=== PATIENT | female | born 1960 | race American Indian/Alaskan Native ===

== ENCOUNTER 2019-08-17 08:59 | Observation (INO) | payer OTHER ==
[2019-08-17] MEDS ORDERED: APRESOLINE IV ONE (09:30)
[2019-08-17] MEDS ORDERED: CATAPRES PO ONE (09:30)
[2019-08-17] MEDS ORDERED: LABETALOL IV ONE ×3 (09:47→10:57)
[2019-08-17 10:06] LABS: Basophils # (Auto) 0.1 K/mm3 (0.0-0.1); Basophils % (Auto) 1.2 % (0.0-1.8); Eosinophils # (Auto) 0.1 K/mm3 (0.0-0.4); Eosinophils % (Auto) 1.2 % (0.0-4.3); Hematocrit 42.2 % (30.3-42.9); Hemoglobin 14.1 gm/dl (10.1-14.3); Lymphocytes % (Auto) 32.7 % (13.4-35.0); Mean Corpuscular HGB Conc 33 % (30-34); Mean Corpuscular Volume 93 fl (79-97); Monocytes # (Auto) 0.5 K/mm3 (0.0-0.8); Monocytes % (Auto) 7.5 % (0.0-7.3); Platelet Count 262 K/mm3 (140-440); Red Blood Count 4.52 M/mm3 (3.65-5.03); Red Cell Distribution Width 13.9 % (13.2-15.2)
--- NOTE | 2019-08-17 10:09 | Emergency Department Report ---
ED Neuro Deficit HPI - General Chief Complaint: Neuro Symptoms/Deficit Stated Complaint: LT SIDE PAIN/TINGLING Time Seen by Provider: 08/17/19 09:51 Source: patient Mode of arrival: Wheelchair Limitations: No Limitations - Related Data Allergies/Adverse Reactions: Allergies Allergy/AdvReac Type Severity Reaction Status Date / Time No Known Allergies Allergy Unverified 08/17/19 09:07 ED Review of Systems ROS: Stated complaint: LT SIDE PAIN/TINGLING Other details as noted in HPI ED Past Medical Hx - Past Medical History Previous Medical History?: No - Surgical History Past Surgical History?: No - Social History Smoking Status: Current Every Day Smoker Substance Use Type: None ED Neuro Physical Exam - General Limitations: No Limitations ED Course Vital Signs 08/17/19 09:07 Temperature 98.0 F Pulse Rate 105 H Respiratory 16 Rate Blood Pressure 235/143 O2 Sat by Pulse 96 Oximetry - Lab Data Result diagrams: 08/17/19 09:35 Lab Results 08/17/19 08/17/19 Range/Units 09:10 09:35 WBC 6.3 (4.5-11.0) K/mm3 RBC 4.52 (3.65-5.03) M/mm3 Hgb 14.1 (10.1-14.3) gm/dl Hct 42.2 (30.3-42.9) % MCV 93 (79-97) fl MCH 31 (28-32) pg MCHC 33 (30-34) % RDW 13.9 (13.2-15.2) % Plt Count 262 (140-440) K/mm3 Lymph % (Auto) 32.7 (13.4-35.0) % [place] % (Auto) 7.5 H (0.0-7.3) % Eos % (Auto) 1.2 (0.0-4.3) % Baso % (Auto) 1.2 (0.0-1.8) % Lymph # 2.0 (1.2-5.4) K/mm3 [place] # 0.5 (0.0-0.8) K/mm3 Eos # 0.1 (0.0-0.4) K/mm3 Baso # 0.1 (0.0-0.1) K/mm3 Seg Neutrophils % 57.4 (40.0-70.0) % Seg Neutrophils # 3.6 (1.8-7.7) K/mm3 POC Glucose 134 H (70-105) Critical care attestation.: If time is entered above; I have spent that time in minutes in the direct care of this critically ill patient, excluding procedure time. ED Disposition Condition: Stable
--- NOTE | 2019-08-17 10:12 | Cat Scan Report ---
CT HEAD WITHOUT CONTRAST INDICATION / CLINICAL INFORMATION: MAIN: STROKE PROTOCOL [phone]. Code stroke. TECHNIQUE: Axial imaging performed from the skull apex through the skull base without the use of cont rast. Sagittal and coronal reformatted images. All CT scans at this location are performed using CT dose reduction for ALARA by means of automated exposure control. COMPARISON: None available. FINDINGS: CEREBRAL PARENCHYMA: No significant abnormality. No acute territorial infarct. HEMORRHAGE: None. EXTRA-AXIAL SPACES: Normal in size and morphology for the patient's age. VENTRICULAR SYSTEM: Normal in size and morphology for the patient's age. MIDLINE SHIFT OR HERNIATION: None. CEREBELLUM / BRAINSTEM: No significant abnormality. CALVARIUM: No significant abnormality. ORBITS: Normal as visualized. PARANASAL SINUSES / MASTOID AIR CELLS: Normal as visualized. SOFT TISSUES of HEAD: No significant abnormality. ADDITIONAL FINDINGS: None. IMPRESSION: No acute intracranial abnormality. These findings were discussed with Dr. Perston in the emergency department at 1005 hours EST. Signer Name: Tyler Kingston Jr, MD Signed: 08/17/2019 10:08 AM Workstation Name: [id number]
[2019-08-17 10:22] LABS: INR 1.01 (0.87-1.13)
[2019-08-17 10:26] LABS: BUN/Creatinine Ratio 29; Blood Urea Nitrogen 20 mg/dL (7-17); Calcium 9.2 mg/dL (8.4-10.2); Hemolysis Index 20
--- NOTE | 2019-08-17 10:27 | Emergency Department Report ---
ED Neuro Deficit HPI - General Chief Complaint: Neuro Symptoms/Deficit Stated Complaint: LT SIDE PAIN/TINGLING Time Seen by Provider: 08/17/19 09:51 Source: patient, family Mode of arrival: Wheelchair Limitations: No Limitations - History of Present Illness Initial Comments: [facility] TeleStroke Metrics: LKW: 1900 last night Door Time: 0859 [facility] Contacted: 0946 [facility] at Bedside: 0952 NIHSS: 1004 Decision on Alteplase: Not to give as the patient's last known well time is greater than 4.5 hours prior to her presentation. Interventional Candidate: Not a candidate as her symptoms are not consistent with a large vessel proximal occlusion. Chief Complaint: Persistent headaches, left-sided pain, and left-sided numbness and weakness HPI: Asked to see this patient in emergent telemedicine consultation utilizing interactive audio and video technologies. Consultation was performed with assistance of ancillary / medical staff at bedside. Verbal consent to perform the examination with telemedicine was obtained. Patient agreed to proceed with the consultation for acute stroke protocol. 59-year-old right-handed -[place] female who comes to the emergency room for left-sided pain and headaches. Patient does not take any medications or aspirin at baseline. Patient does report a history of migraine headaches. ER staff notes that the patient smells like alcohol. Sometime about 3 to 4 days ago on , the patient was at work when she had acute left facial pain. She describes the pain as pressure and noted as if someone hit the left side of her face. She also over the last 1 week has been dealing with a migraine headache with mild photophobia but no nausea. Then last night around 7 PM, she developed left-sided pain and paresthesias. She describes bone pain and also as if someone was hitting the left side of her body. She reports that her pain overall is 9/10 currently. Patient states she has never had symptoms like this before. PMH: Migraine headache SOC: Positive for tobacco abuse and alcohol use. No illicit drug use. Patient lives with her fianc. FMH: Negative for stroke. ROS: 13 point review of systems were reviewed with the patient, and are all negative with the exception of the aforementioned in the history of present illness. VS: Blood pressure 196/115, respiration 14, oxygen saturation 100% Exam: Patient is in no apparent distress. Patient appears as stated age. No obvious acute respiratory or cardiac distress. Patient is well groomed and well-nourished. 1a- LOC: Keenly responsive - 0 1b- LOC questions: Answers both questions correctly - 0 1c- LOC commands- Performs both tasks correctly- 0 2- Gaze: Normal; no gaze paresis or gaze deviation - 0 3- Visual Morgan: normal, no Visual field deficit - 0 4- Facial movements: no facial palsy - 0 5- Upper limb motor left arm drift - 1 6- Lower limb motor left leg drift - 1 7- Limb Coordination: absent ataxia - 0 8- Sensory: left sensory loss - 1 9- Language - No aphasia - 0 10- Speech - No dysarthria -0 11- Neglect / Extinction - none found - 0 NIHSS score: 3 Diagnostic Data: CT head is negative. Blood glucose 134 Medical Data Reviewed: 1.Data?reviewed include clinical labs, radiology,?and medical tests; 2.Tests?results discussed w/performing or interpreting physician; 3.Obtaining/reviewing old medical records; 4.Obtaining?case history from another source; 5.Independent?review of image, tracing, or specimen. Medical Decision Making: - Extensive number of diagnosis or management options are considered below. - Extensive amount of complex data reviewed. - High risk of complication and/or morbidity or mortality are associated with differential diagnostic considerations below. - There may be?uncertain?outcome and increased probability of prolonged functional impairment or high probability of severe prolonged functional impairment associated with some of these differential diagnosis. Differential Diagnosis for Stroke: 1.?Cardioembolic?stroke 2. Small vessel disease/lacune 3. Thromboembolic, [id number] mechanism 4.?Hypercoagulable?state-related infarct 5. Transient ischemic attack 6. Thrombotic mechanism, large artery disease Assessment: 1. Possible complicated migraine 2. Tobacco abuse and alcohol abuse 3. Possible hypertension Recommendations: Patient can be admitted to the hospital for further work-up of her symptoms. Check MRI brain with and without contrast to rule out any acute intracranial process. Check MRA of the head and neck to evaluate her intracranial and extracranial blood vessels. Check echocardiogram to gauge her cardiac function. Maintain the patient on telemetry to look for paroxysmal atrial fibrillation. Check hemoglobin A1c, lipid panel, and urine drug screen. Consult PT, OT, and ST. Patient can be given a trial of IV migraine cocktail medications per ER team. Consult local neurology team to assist with evaluation and management. Continue supportive care. Thank you for allowing [facility] to participate in the care of your patient. Please call me, Dr. Fung, with any questions at [phone]. Case discussed with the ER staff and Dr. Preston. Critical Care notation: I was called to see this critical patient emergently. I personally evaluated this critical patient for acute stroke evaluation, and determining their eligibility for IV Alteplase and interventional therapies. I have spent approximately 15 minutes with the patient, including time at bedside, time discussing the case with other physicians, reviewing plan of care, and time independently reviewing the records and scans. - Related Data Allergies/Adverse Reactions: Allergies Allergy/AdvReac Type Severity Reaction Status Date / Time No Known Allergies Allergy Unverified 08/17/19 09:07 ED Review of Systems ROS: Stated complaint: LT SIDE PAIN/TINGLING Other details as noted in HPI ED Past Medical Hx - Past Medical History Previous Medical History?: No - Surgical History Past Surgical History?: No - Social History Smoking Status: Current Every Day Smoker Substance Use Type: None ED Neuro Physical Exam - General Limitations: No Limitations Suspected Stroke: No ED Course Vital Signs 08/17/19 08/17/19 09:07 09:47 Temperature 98.0 F Pulse Rate 105 H 104 H Respiratory 16 Rate Blood Pressure 235/143 235/143 O2 Sat by Pulse 96 Oximetry - Lab Data Result diagrams: 08/17/19 09:35 Lab Results 08/17/19 08/17/19 08/17/19 Range/Units 09:10 09:35 09:35 WBC 6.3 (4.5-11.0) K/mm3 RBC 4.52 (3.65-5.03) M/mm3 Hgb 14.1 (10.1-14.3) gm/dl Hct 42.2 (30.3-42.9) % MCV 93 (79-97) fl MCH 31 (28-32) pg MCHC 33 (30-34) % RDW 13.9 (13.2-15.2) % Plt Count 262 (140-440) K/mm3 Lymph % (Auto) 32.7 (13.4-35.0) % [place] % (Auto) 7.5 H (0.0-7.3) % Eos % (Auto) 1.2 (0.0-4.3) % Baso % (Auto) 1.2 (0.0-1.8) % Lymph # 2.0 (1.2-5.4) K/mm3 [place] # 0.5 (0.0-0.8) K/mm3 Eos # 0.1 (0.0-0.4) K/mm3 Baso # 0.1 (0.0-0.1) K/mm3 Seg Neutrophils % 57.4 (40.0-70.0) % Seg Neutrophils # 3.6 (1.8-7.7) K/mm3 Thrombin Time 18.2 (15.1-19.6) Sec. POC Glucose 134 H (70-105) Critical care attestation.: If time is entered above; I have spent that time in minutes in the direct care of this critically ill patient, excluding procedure time. ED Disposition Clinical Impression: Left-sided face pain Disposition: OP ADMIT IP TO THIS HOSP Is pt being admited?: Yes Does the pt Need Aspirin: No Condition: Stable
[2019-08-17 10:30] LABS: Alanine Aminotransferase 33 units/L (7-56); Albumin 4.5 g/dL (3.9-5)
[2019-08-17 10:31] LABS: Partial Thromboplastin Time 27.2 Sec. (24.2-36.6)
[2019-08-17 10:44] LABS: Bilirubin,Direct < 0.2 mg/dL (0-0.2)
--- NOTE | 2019-08-17 10:47 | XRay Report ---
CHEST 1 VIEW INDICATION: hypertension. COMPARISON: None FINDINGS: Support devices: None. Heart: Borderline to mild cardiomegaly. Lungs/Pleura: No acute air space or interstitial disease. Additional findings: None. IMPRESSION: Borderline to mild cardiomegaly. Lungs clear. Signer Name: Tyler Kingston Jr, MD Signed: 08/17/2019 10:42 AM Workstation Name: [id number]
[2019-08-17] MEDS ORDERED: ZOFRAN IV ONE (10:57)
[2019-08-17] MEDS ORDERED: MORPHINE IV ONE (10:57)
--- NOTE | 2019-08-17 11:30 | Emergency Department Report ---
ED Neuro Deficit HPI - General Chief Complaint: Neuro Symptoms/Deficit Stated Complaint: LT SIDE PAIN/TINGLING Time Seen by Provider: 08/17/19 09:51 Source: patient, family Mode of arrival: Wheelchair Limitations: No Limitations - History of Present Illness Initial Comments: This is a 59-year-old female who was preliminarily screened by the physician rohith hough who told me that the patient has had left sided weakness and numbness since between 7 and 8 last night. She also presented with a left-sided headache. She had been recently consuming alcohol. The exact onset of her symptoms were vacantly day. She was found to have an extreme elevation of her blood pressure. Therefore, the code stroke was called to expedite her care, established treatment paradigm's, rule out acute hemorrhage and obtain consultation from the tele-neurologist. Patient's history was a bit variable. On my encounter she was not complaining of headache. She stated that she had a difference in sensation involving her face arm and leg. She stated that she had difficulty walking but not specifically secondary to coordination. She stated that her vision was globally blurred. She stated that she has not seen a physician in years. She had not checked her blood pressure and a similar period of time. Her initial blood pressure was extraordinarily high. She was given 20 of labetalol and sent for an emergency CT. -: hour(s) Location: left face, left arm, left leg Presenting Symptoms: Present: Weak/Paralyzed One Side, Blurred/Loss of Vision History of same: No Place: home Severity: mild, moderate Quality: weak, numb Improves With: none Worsens With: none On Anticoagulants: No Context: gradual onset Associated Symptoms: denies other symptoms Treatments Prior to Arrival: none - Related Data Allergies/Adverse Reactions: Allergies Allergy/AdvReac Type Severity Reaction Status Date / Time No Known Allergies Allergy Unverified 08/17/19 09:07 ED Review of Systems ROS: Stated complaint: LT SIDE PAIN/TINGLING Other details as noted in HPI Constitutional: denies: chills, fever Eyes: denies: eye pain, eye discharge, vision change ENT: denies: ear pain, throat pain Respiratory: denies: cough, shortness of breath, wheezing Cardiovascular: denies: chest pain, palpitations Endocrine: no symptoms reported Gastrointestinal: denies: abdominal pain, nausea, diarrhea Genitourinary: denies: urgency, dysuria, discharge Musculoskeletal: denies: back pain, joint swelling, arthralgia Skin: denies: rash, lesions Neurological: headache, weakness, numbness. denies: paresthesias Psychiatric: denies: anxiety, depression Hematological/Lymphatic: denies: easy bleeding, easy bruising ED Past Medical Hx - Past Medical History Previous Medical History?: No - Surgical History Past Surgical History?: No - Social History Smoking Status: Current Every Day Smoker Substance Use Type: None ED Neuro Physical Exam - General Limitations: No Limitations General appearance: alert, in no apparent distress Suspected Stroke: Yes - Head Head exam: Present: atraumatic, normocephalic - Eye Eye exam: Present: normal appearance - ENT ENT exam: Present: mucous membranes moist - Neck Neck exam: Present: normal inspection - Respiratory Respiratory exam: Present: normal lung sounds bilaterally. Absent: respiratory distress - Cardiovascular Cardiovascular Exam: Present: regular rate, normal rhythm. Absent: systolic mu rmur, diastolic murmur, rubs, gallop - GI/Abdominal GI/Abdominal exam: Present: soft, normal bowel sounds. Absent: distended, tenderness, guarding, rebound, rigid - Extremities Exam Extremities exam: Present: normal inspection - Back Exam Back exam: Present: normal inspection - Neurological Exam Neurological exam: Present: alert, oriented X3, CN II-XII intact, motor sensory deficit - NIHSS Assessment Interval: Baseline 1a. Level of Consciousness: alert/keenly responsive 1b. LOC Questions: answers both correctly 1c. LOC Commands: performs tasks correctly 2. Best Gaze: normal 3. Visual: no visual loss 4. Facial Palsy: normal symmetrical movement 5b. Motor Arm Right: no drift 5a. Motor Arm Left: drift (very mild) 6a. Motor Leg Left: no drift 6b. Motor Leg Right: no drift (I did not find just on the standard second count) 7. Limb Ataxia: absent 8. Sensory: mild/moderate sensory loss 9. Best Language: no aphasia 10. Dysarthria: normal 11. Extinction/Inattention: no abnormality Total Score: 2 Stroke Severity: Minor Stroke - Psychiatric Psychiatric exam: Present: anxious, flat affect - Skin Skin exam: Present: warm, dry, intact, normal color. Absent: rash ED Course Vital Signs 08/17/19 08/17/19 08/17/19 09:07 09:25 09:28 Temperature 98.0 F Pulse Rate 105 H 100 H Respiratory 16 13 Rate Blood Pressure 235/143 O2 Sat by Pulse 96 100 Oximetry 08/17/19 08/17/19 08/17/19 09:30 09:40 09:47 Temperature Pulse Rate 108 H 98 H 104 H Respiratory 20 16 Rate Blood Pressure 219/147 219/147 235/143 O2 Sat by Pulse 99 100 Oximetry 08/17/19 08/17/19 08/17/19 09:50 10:03 10:10 Temperature Pulse Rate 89 Respiratory 16 Rate Blood Pressure 185/106 196/115 196/115 O2 Sat by Pulse 100 100 Oximetry 08/17/19 08/17/19 08/17/19 10:20 10:30 10:40 Temperature Pulse Rate 89 90 91 H Respiratory 17 13 12 Rate Blood Pressure 190/110 181/112 181/112 O2 Sat by Pulse 100 98 100 Oximetry 08/17/19 08/17/19 08/17/19 10:50 11:00 11:10 Temperature Pulse Rate 88 91 H 87 Respiratory 17 16 12 Rate Blood Pressure 185/106 177/102 177/102 O2 Sat by Pulse 99 98 100 Oximetry 08/17/19 08/17/19 08/17/19 11:20 11:30 11:40 Temperature Pulse Rate 90 92 H 93 H Respiratory 17 15 17 Rate Blood Pressure 179/97 182/99 182/99 O2 Sat by Pulse 100 99 100 Oximetry - Reevaluation(s) Reevaluation #1: Patient's blood pressure improved. We took care not to over treat but we did want to talk R get a systolic less than 185. I spoke to the telephone neurolog ist. He was leaning towards a diagnosis of complicated migraine. However, I do find it a bit atypical to have sustained sided headache and neurological symptoms and complicated migraine. In any case CVA cannot be excluded. This could be a hypertensive encephalopathy as well. The patient certainly had malignant hypertension. He was given analgesia and careful reduction of her blood pressure. She will be admitted to the hospitalist service for continued care and stroke workup. She is not a candidate for TPA as her symptoms began between 7 and 8 PM last night. There is no evidence of large vessel occlusion on CT or clinically at this time. 08/17/19 11:34 - Lab Data Result diagrams: 08/17/19 09:35 08/17/19 09:35 Lab Results 08/17/19 08/17/19 08/17/19 Range/Units 09:10 09:35 09:35 WBC 6.3 (4.5-11.0) K/mm3 RBC 4.52 (3.65-5.03) M/mm3 Hgb 14.1 (10.1-14.3) gm/dl Hct 42.2 (30.3-42.9) % MCV 93 (79-97) fl MCH 31 (28-32) pg MCHC 33 (30-34) % RDW 13.9 (13.2-15.2) % Plt Count 262 (140-440) K/mm3 Lymph % (Auto) 32.7 (13.4-35.0) % Thomas % (Auto) 7.5 H (0.0-7.3) % Eos % (Auto) 1.2 (0.0-4.3) % Baso % (Auto) 1.2 (0.0-1.8) % Lymph # 2.0 (1.2-5.4) K/mm3 Thomas # 0.5 (0.0-0.8) K/mm3 Eos # 0.1 (0.0-0.4) K/mm3 Baso # 0.1 (0.0-0.1) K/mm3 Seg Neutrophils % 57.4 (40.0-70.0) % Seg Neutrophils # 3.6 (1.8-7.7) K/mm3 PT 13.0 (12.2-14.9) Sec. INR 1.01 (0.87-1.13) APTT 27.2 (24.2-36.6) Sec. Thrombin Time (15.1-19.6) Sec. Sodium (137-145) mmol/L Potassium (3.6-5.0) mmol/L Chloride (98-107) mmol/L Carbon Dioxide (22-30) mmol/L Anion Gap mmol/L BUN (7-17) mg/dL Creatinine (0.7-1.2) mg/dL Estimated GFR ml/min BUN/Creatinine Ratio % Glucose (65-100) mg/dL POC Glucose 134 H (70-105) Calcium (8.4-10.2) mg/dL Magnesium (1.7-2.3) mg/dL Total Bilirubin (0.1-1.2) mg/dL Direct Bilirubin (0-0.2) mg/dL Indirect Bilirubin mg/dL AST (5-40) units/L ALT (7-56) units/L Alkaline Phosphatase (35-129) units/L Ammonia (25-60) umol/L Troponin T (0.00-0.029) ng/mL NT-Pro-B Natriuret Pep (0-900) pg/mL Total Protein (6.3-8.2) g/dL Albumin (3.9-5) g/dL Albumin/Globulin Ratio % 08/17/19 08/17/19 08/17/19 Range/Units 09:35 09:35 09:35 WBC (4.5-11.0) K/mm3 RBC (3.65-5.03) M/mm3 Hgb (10.1-14.3) gm/dl Hct (30.3-42.9) % MCV (79-97) fl MCH (28-32) pg MCHC (30-34) % RDW (13.2-15.2) % Plt Count (140-440) K/mm3 Lymph % (Auto) (13.4-35.0) % Thomas % (Auto) (0.0-7.3) % Eos % (Auto) (0.0-4.3) % Baso % (Auto) (0.0-1.8) % Lymph # (1.2-5.4) K/mm3 Thomas # (0.0-0.8) K/mm3 Eos # (0.0-0.4) K/mm3 Baso # (0.0-0.1) K/mm3 Seg Neutrophils % (40.0-70.0) % Seg Neutrophils # (1.8-7.7) K/mm3 PT (12.2-14.9) Sec. INR (0.87-1.13) APTT (24.2-36.6) Sec. Thrombin Time 18.2 (15.1-19.6) Sec. Sodium 141 (137-145) mmol/L Potassium 4.0 (3.6-5.0) mmol/L Chloride 99.6 (98-107) mmol/L Carbon Dioxide 22 (22-30) mmol/L Anion Gap 23 mmol/L BUN 20 H (7-17) mg/dL Creatinine 0.7 (0.7-1.2) mg/dL Estimated GFR > 60 ml/min BUN/Creatinine Ratio 29 % Glucose 127 H (65-100) mg/dL POC Glucose (70-105) Calcium 9.2 (8.4-10.2) mg/dL Magnesium 1.90 (1.7-2.3) mg/dL Total Bilirubin 0.20 (0.1-1.2) mg/dL Direct Bilirubin < 0.2 (0-0.2) mg/dL Indirect Bilirubin 0.0 mg/dL AST 34 (5-40) units/L ALT 33 (7-56) units/L Alkaline Phosphatase 81 (35-129) units/L Ammonia (25-60) umol/L Troponin T < 0.010 (0.00-0.029) ng/mL NT-Pro-B Natriuret Pep 102.5 (0-900) pg/mL Total Protein 8.7 H (6.3-8.2) g/dL Albumin 4.5 (3.9-5) g/dL Albumin/Globulin Ratio 1.1 % // Range/Units 10:09 WBC (4.5-11.0) K/mm3 RBC (3.65-5.03) M/mm3 Hgb (10.1-14.3) gm/dl Hct (30.3-42.9) % MCV (79-97) fl MCH (28-32) pg MCHC (30-34) % RDW (13.2-15.2) % Plt Count (140-440) K/mm3 Lymph % (Auto) (13.4-35.0) % Thomas % (Auto) (0.0-7.3) % Eos % (Auto) (0.0-4.3) % Baso % (Auto) (0.0-1.8) % Lymph # (1.2-5.4) K/mm3 Thomas # (0.0-0.8) K/mm3 Eos # (0.0-0.4) K/mm3 Baso # (0.0-0.1) K/mm3 Seg Neutrophils % (40.0-70.0) % Seg Neutrophils # (1.8-7.7) K/mm3 PT (12.2-14.9) Sec. INR (0.87-1.13) APTT (24.2-36.6) Sec. Thrombin Time (15.1-19.6) Sec. Sodium (137-145) mmol/L Potassium (3.6-5.0) mmol/L Chloride (98-107) mmol/L Carbon Dioxide (22-30) mmol/L Anion Gap mmol/L BUN (7-17) mg/dL Creatinine (0.7-1.2) mg/dL Estimated GFR ml/min BUN/Creatinine Ratio % Glucose (65-100) mg/dL POC Glucose (70-105) Calcium (8.4-10.2) mg/dL Magnesium (1.7-2.3) mg/dL Total Bilirubin (0.1-1.2) mg/dL Direct Bilirubin (0-0.2) mg/dL Indirect Bilirubin mg/dL AST (5-40) units/L ALT (7-56) units/L Alkaline Phosphatase (35-129) units/L Ammonia 54.0 (25-60) umol/L Troponin T (0.00-0.029) ng/mL NT-Pro-B Natriuret Pep (0-900) pg/mL Total Protein (6.3-8.2) g/dL Albumin (3.9-5) g/dL Albumin/Globulin Ratio % - EKG Data -: EKG Interpreted by Fl EKG shows normal: sinus rhythm, axis, intervals, QRS complexes, ST-T waves Rate: tachycardia Interpretation: other (sitter old anterior zone. Inferior son is jayant merida. Left axis deviation. No acute ischemic changes) - Radiology Data Radiology results: report reviewed (discussed with radiologist Dr. Kingston. No abnormalities were reported.) - Medical Decision Making TPA is not indicated. The patient is outside the window. She will be admitted for further care and management as above. - Thrombolytic Inclusion/Exclusion Thrombolytic Exclusion Criteria: Symptom Onset > 3 Hours Critical care attestation.: If time is entered above; I have spent that time in minutes in the direct care of this critically ill patient, excluding procedure time. ED Disposition Clinical Impression: Neurological deficit present, Malignant hypertension Disposition: OP ADMIT IP TO THIS HOSP Is pt being admited?: Yes Does the pt Need Aspirin: Yes Condition: Stable Instructions: Hypertension (ED) Referrals: PRIMARY CARE, [Primary Care Provider] - 3-5 Days Time of Disposition: 12:09
[2019-08-17] MEDS ORDERED: COZAAR PO ONE (11:59)
[2019-08-17] MEDS ORDERED: ASPIRIN PO ONE (12:00)
[2019-08-17] MEDS ORDERED: COZAAR ONE (12:52)
[2019-08-17] MEDS ORDERED: ASPIRIN ONE (12:52)
[2019-08-17] MEDS ORDERED: TYLENOL PO PRN (16:00)
[2019-08-17] MEDS ORDERED: DILAUDID IV PRN (16:00)
[2019-08-17] MEDS ORDERED: ZOFRAN IV PRN (16:00)
[2019-08-17] MEDS ORDERED: SODIUM CHLORIDE FLUSH SYRINGE 10 ML IV PRN ×2 (16:00→16:08)
[2019-08-17] MEDS ORDERED: PERCOCET 5/325 PO PRN (16:00)
--- NOTE | 2019-08-17 16:00 | History and Physical Report ---
History of Present Illness Date of examination: 08/17/19 Date of admission: 08/17/19 12:00 Chief complaint: Left-sided weakness since 8 PM last night History of present illness: 59-year-old -[place] female with no significant past medical history comes in for left-sided weakness and numbness since last night around 8 PM. Patient also had left-sided headache. Patient able to walk has slight weakness on the left upper extremity and left lower extremity which is improved. But not back to her baseline. This is the first episode. No seizures or syncope. No fever or chills. No recent travel. Past Medical History Previous Medical History?: No Surgical History Past Surgical History?: No Social History Smoking Status: Current Every Day Smoker Substance Use Type: None Family History Htn Review of Systems ROS: Stated complaint: LT SIDE PAIN/TINGLING Other details as noted in HPI Constitutional: denies: chills, fever Eyes: denies: eye pain, eye discharge, vision change ENT: denies: ear pain, throat pain Respiratory: denies: cough, shortness of breath, wheezing Cardiovascular: denies: chest pain, palpitations Endocrine: no symptoms reported Gastrointestinal: denies: abdominal pain, nausea, diarrhea Genitourinary: denies: urgency, dysuria, discharge Musculoskeletal: denies: back pain, joint swelling, arthralgia Skin: denies: rash, lesions Neurological: headache, weakness, numbness. denies: paresthesias Psychiatric: denies: anxiety, depression Hematological/Lymphatic: denies: easy bleeding, easy bruising Medications and Allergies Allergies Allergy/AdvReac Type Severity Reaction Status Date / Time No Known Allergies Allergy Unverified 08/17/19 09:07 Home Medications Medication Instructions Recorded Confirmed Last Taken Type No Known Home Medications [No 08/17/19 08/17/19 Unknown History Reported Home Medications] Exam - Constitutional Vitals: Temp Pulse Resp BP Pulse Ox 98 F 87 19 187/103 100 08/17/19 14:02 08/17/19 14:02 08/17/19 14:02 08/17/19 14:02 08/17/19 12:40 General appearance: Present: no acute distress, well-nourished - EENT Eyes: Present: PERRL ENT: hearing intact, clear oral mucosa - Neck Neck: Present: supple, normal ROM - Respiratory Respiratory effort: normal Respiratory: bilateral: CTA - Cardiovascular Heart rate: 78 Rhythm: regular Heart Sounds: Present: S1 & S2. Absent: rub, click - Extremities Extremities: no ischemia, pulses intact, pulses symmetrical, No edema Peripheral Pulses: within normal limits - Abdominal General gastrointestinal: Present: soft, non-tender, non-distended, normal bowel sounds Female genitourinary: Present: normal - Rectal Rectal Exam: deferred - Integumentary Integumentary: Present: clear, warm, dry - Musculoskeletal Musculoskeletal: left sided weakness - Psychiatric Psychiatric: appropriate mood/affect, intact judgment & insight - Neurologic Neurologic: focal deficits (left-sided weakness 4/5 power in left upper extremity and left lower extremity. Left facial weakness), other (left facial palsy -mild) - Allied Health Allied health notes reviewed: nursing, case management Results - Labs CBC & Chem 7: 08/17/19 09:35 08/17/19 09:35 Labs: Laboratory Last Values WBC 6.3 K/mm3 (4.5-11.0) 08/17/19 09:35 RBC 4.52 M/mm3 (3.65-5.03) 08/17/19 09:35 Hgb 14.1 gm/dl (10.1-14.3) 08/17/19 09:35 Hct 42.2 % (30.3-42.9) 08/17/19 09:35 MCV 93 fl (79-97) 08/17/19 09:35 MCH 31 pg (28-32) 08/17/19 09:35 MCHC 33 % (30-34) 08/17/19 09:35 RDW 13.9 % (13.2-15.2) 08/17/19 09:35 Plt Count 262 K/mm3 (140-440) 08/17/19 09:35 Lymph % (Auto) 32.7 % (13.4-35.0) 08/17/19 09:35 Daniels % (Auto) 7.5 % (0.0-7.3) H 08/17/19 09:35 Eos % (Auto) 1.2 % (0.0-4.3) 08/17/19 09:35 Baso % (Auto) 1.2 % (0.0-1.8) 08/17/19 09:35 Lymph # 2.0 K/mm3 (1.2-5.4) 08/17/19 09:35 Daniels # 0.5 K/mm3 (0.0-0.8) 08/17/19 09:35 Eos # 0.1 K/mm3 (0.0-0.4) 08/17/19 09:35 Baso # 0.1 K/mm3 (0.0-0.1) 08/17/19 09:35 Seg Neutrophils % 57.4 % (40.0-70.0) 08/17/19 09:35 Seg Neutrophils # 3.6 K/mm3 (1.8-7.7) 08/17/19 09:35 PT 13.0 Sec. (12.2-14.9) 08/17/19 09:35 INR 1.01 (0.87-1.13) 08/17/19 09:35 APTT 27.2 Sec. (24.2-36.6) 08/17/19 09:35 Thrombin Time 18.2 Sec. (15.1-19.6) 08/17/19 09:35 Sodium 141 mmol/L (137-145) 08/17/19 09:35 Potassium 4.0 mmol/L (3.6-5.0) 08/17/19 09:35 Chloride 99.6 mmol/L (98-107) 08/17/19 09:35 Carbon Dioxide 22 mmol/L (22-30) 08/17/19 09:35 Anion Gap 23 mmol/L 08/17/19 09:35 BUN 20 mg/dL (7-17) H 08/17/19 09:35 Creatinine 0.7 mg/dL (0.7-1.2) 08/17/19 09:35 Estimated GFR > 60 ml/min 08/17/19 09:35 BUN/Creatinine Ratio 29 % 08/17/19 09:35 Glucose 127 mg/dL (65-100) H 08/17/19 09:35 POC Glucose 134 (70-105) H 08/17/19 09:10 Calcium 9.2 mg/dL (8.4-10.2) 08/17/19 09:35 Magnesium 1.90 mg/dL (1.7-2.3) 08/17/19 09:35 Total Bilirubin 0.20 mg/dL (0.1-1.2) 08/17/19 09:35 Direct Bilirubin < 0.2 mg/dL (0-0.2) 08/17/19 09:35 Indirect Bilirubin 0.0 mg/dL 08/17/19 09:35 AST 34 units/L (5-40) 08/17/19 09:35 ALT 33 units/L (7-56) 08/17/19 09:35 Alkaline Phosphatase 81 units/L (35-129) 08/17/19 09:35 Ammonia 54.0 umol/L (25-60) 08/17/19 10:09 Troponin T < 0.010 ng/mL (0.00-0.029) 08/17/19 09:35 NT-Pro-B Natriuret Pep 102.5 pg/mL (0-900) 08/17/19 09:35 Total Protein 8.7 g/dL (6.3-8.2) H 08/17/19 09:35 Albumin 4.5 g/dL (3.9-5) 08/17/19 09:35 Albumin/Globulin Ratio 1.1 % 08/17/19 09:35 Plasma/Serum Alcohol 0.11 % (0-0.07) H 08/17/19 09:35 Short CBC 08/17/19 Range/Units 09:35 WBC 6.3 (4.5-11.0) K/mm3 Hgb 14.1 (10.1-14.3) gm/dl Hct 42.2 (30.3-42.9) % Plt Count 262 (140-440) K/mm3 BMP 08/17/19 09:35 Sodium 141 Potassium 4.0 Chloride 99.6 Carbon Dioxide 22 BUN 20 H Creatinine 0.7 Glucose 127 H Calcium 9.2 Cardiac Enzymes 08/17/19 Range/Units 09:35 Troponin T < 0.010 (0.00-0.029) ng/mL Liver Function 08/17/19 Range/Units 09:35 Total Bilirubin 0.20 (0.1-1.2) mg/dL Direct Bilirubin < 0.2 (0-0.2) mg/dL AST 34 (5-40) units/L ALT 33 (7-56) units/L Alkaline Phosphatase 81 (35-129) units/L Albumin 4.5 (3.9-5) g/dL - Imaging and Cardiology EKG: report reviewed (sinus rhythm heart rate of 96/m) CT Scan - head: report reviewed Imaging and Cardiology: CT head IMPRESSION: No acute intracranial abnormality. Chest x-ray Borderline to mild cardiomegaly Assessment and Plan Advance Directives: Yes (full code) VTE prophylaxis?: Chemical Plan of care discussed with patient/family: Yes - Patient Problems (1) Acute CVA (cerebrovascular accident) Current Visit: Yes Status: Acute Plan to address problem: Acute CVA workup MRA was not ordered MRI carotid duplex scan and echocardiogram ordered Neurology consult requested Aspirin and Plavix initiated (2) Hypertensive emergency Current Visit: Yes Status: Acute Plan to address problem: Patient with newly diagnosed hypertension Patient started on losartan and amlodipine Also hydralazine IV 10 mg every 3 hours when necessary Patient was given IV labetalol in the emergency room and clonidine in the emergency room (3) Tension headache Current Visit: Yes Status: Acute Plan to address problem: Fioricet one tablet 4 times a day when necessary (4) DVT prophylaxis Current Visit: Yes Status: Acute Plan to address problem: Lovenox 40 mg subcutaneous daily and GI prophylaxis
[2019-08-17] MEDS ORDERED: APRESOLINE IV PRN (19:11)
[2019-08-17] MEDS: COZAAR PO SCH (20:59)
[2019-08-17] MEDS: HABITROL TD SCH (21:00)
[2019-08-17] MEDS: PEPCID PO SCH (21:00)
[2019-08-17] MEDS: SODIUM CHLORIDE FLUSH SYRINGE 10 ML IV SCH (21:01)
[2019-08-17] MEDS ORDERED: PRAVACHOL PO SCH (22:00)
[2019-08-18 06:06] LABS: Basophils % (Auto) 0.8 % (0.0-1.8); Eosinophils # (Auto) 0.1 K/mm3 (0.0-0.4); Eosinophils % (Auto) 2.9 % (0.0-4.3); Hematocrit 41.6 % (30.3-42.9); Hemoglobin 13.9 gm/dl (10.1-14.3); Lymphocytes # (Auto) 1.6 K/mm3 (1.2-5.4); Lymphocytes % (Auto) 34.4 % (13.4-35.0); Mean Corpuscular HGB Conc 34 % (30-34); Mean Corpuscular Volume 93 fl (79-97); Monocytes # (Auto) 0.5 K/mm3 (0.0-0.8); Monocytes % (Auto) 11.1 % (0.0-7.3); Platelet Count 222 K/mm3 (140-440); Red Blood Count 4.46 M/mm3 (3.65-5.03); Red Cell Distribution Width 13.7 % (13.2-15.2)
[2019-08-18 06:16] LABS: Alanine Aminotransferase 26 units/L (7-56); Albumin 3.9 g/dL (3.9-5); BUN/Creatinine Ratio 18; Blood Urea Nitrogen 11 mg/dL (7-17); Calcium 8.7 mg/dL (8.4-10.2); Chol/HDL Ratio 2.43 %; HDL Cholesterol 57 mg/dL (40-59); Hemolysis Index 9; LDL Cholesterol,Direct 59 mg/dL (50-130)
[2019-08-18] MEDS: PEPCID PO SCH (09:29)
[2019-08-18] MEDS: COZAAR PO SCH (09:29)
[2019-08-18] MEDS: HABITROL TD SCH (09:29)
[2019-08-18] MEDS: SODIUM CHLORIDE FLUSH SYRINGE 10 ML IV SCH (09:34)
[2019-08-18] MEDS ORDERED: ASPIRIN PO SCH (10:00)
[2019-08-18] MEDS ORDERED: PLAVIX PO SCH (10:00)
--- NOTE | 2019-08-18 10:09 | Vascular Lab Report ---
BILATERAL CAROTID DOPPLER ULTRASOUND INDICATION : stroke TECHNIQUE: Grayscale and color Doppler imaging performed through the neck. COMPARISON: None FINDINGS: Right: There is no significant atherosclerotic disease. Peak systolic velocity in the CCA is 72 cm/ s with end-diastolic velocity of 14 cm/s. Peak systolic velocity in the proximal ICA is 69 cm/s with end-diastolic velocity of 13 cm/s. ICA to CCA ratio is less than 2. There is antegrade flow in the E CA and the vertebral artery. Left: There is no significant atherosclerotic disease. Peak systolic velocity in the CCA is 67 cm/s w ith end-diastolic velocity of 12 cm/s. Peak systolic velocity in the proximal ICA is 70 cm/s with end -diastolic velocity of 19 cm/s. ICA to CCA ratio is less than 2. There is antegrade flow in the ECA and the vertebral artery. IMPRESSION: No hemodynamically significant stenosis by NASCET criteria. There is less than 50% lumina l narrowing throughout both carotid systems by Doppler velocities. Signer Name: Tyler Kingston Jr, MD Signed: 08/18/2019 10:04 AM Workstation Name: [id number]
--- NOTE | 2019-08-18 14:00 | Magnetic Resonance Report ---
MRI BRAIN WITHOUT CONTRAST INDICATION / CLINICAL INFORMATION: stroke. Unsteady gait, blurred vision, right-sided facial pain TECHNIQUE: Multiplanar, multisequence MR images of the brain were obtained. COMPARISON: CT head dated 08/17/2019. FINDINGS: BRAIN / INTRACRANIAL CONTENTS: No acute ischemia, acute hemorrhage, mass effect, midline shift, or hy drocephalus. No chronic infarct or atrophy. No significant white matter abnormality. CRANIOCERVICAL JUNCTION: No significant abnormality. VASCULAR FLOW-VOIDS: No significant abnormality. ORBITS: No significant abnormality of visualized orbits. SINUSES / MASTOIDS: No significant abnormality of visualized sinuses and mastoid air cells. ADDITIONAL FINDINGS: None. IMPRESSION: Unremarkable MRI brain. No evidence for acute ischemia, hemorrhage or mass. Signer Name: Tyler Kingston Jr, MD Signed: 08/18/2019 1:55 PM Workstation Name: [id number]
[2019-08-18 14:39] VITALS: BP 151/87
--- NOTE | 2019-08-18 16:45 | Discharge Summary ---
Providers - Providers Date of Admission: 08/17/19 12:00 Date of discharge: 08/18/19 Attending physician: MARIANO KRUEGER 08/17/19 16:00 Consult to Physician [CONS] Routine Comment: Consulting Provider: YUDELKA VENTURA Physician Instructions: Reason For Exam: CVA 08/17/19 16:09 Occupational Therapy Evaluate and Treat [CONS] Routine Comment: Reason For Exam: Neuro deficits Physical Therapy Evaluation and Treat [CONS] Routine Comment: Reason For Exam: Neuro deficits Primary care physician: SENIOR TRAINER Hospitalization Condition: Stable Hospital course: History of present illness: 59-year-old -[place] female with no significant past medical history comes in for left-sided weakness and numbness since last night around 8 PM. Patient also had left-sided headache. Patient able to walk has slight weakness on the left upper extremity and left lower extremity which is improved. But not back to her baseline. This is the first episode. No seizures or syncope. No fever or chills. No recent travel. Past Medical History Previous Medical History?: No Surgical History Past Surgical History?: No Social History Smoking Status: Current Every Day Smoker Substance Use Type: None Family History Htn (1) TIA Current Visit: Yes Status: Acute Plan to address problem: Acute CVA workup MRA was not ordered MRI ---No ischemia Neurology consult requested Aspirin and Plavix initiated Possible TIA CVA ruled ot (2) Hypertensive emergency Current Visit: Yes Status: Acute Plan to address problem: patient to cont anti hypertensives==prescribed (3) Tension headache Current Visit: Yes Status: Acute Plan to address problem: Tylenol 650 mg po qid prn Disposition: - TO HOME OR SELFCARE Core Measure Documentation - Palliative Care Palliative Care/ Comfort Measures: Not Applicable - Core Measures Any of the following diagnoses?: none Exam - Constitutional Vitals: Temp Pulse Resp BP Pulse Ox 98.3 F 111 H 18 151/87 98 08/18/19 14:33 08/18/19 14:33 08/18/19 14:33 08/18/19 14:33 08/18/19 14:33 General appearance: Present: no acute distress, well-nourished - EENT Eyes: Present: PERRL ENT: hearing intact, clear oral mucosa - Neck Neck: Present: supple, normal ROM - Respiratory Respiratory effort: normal Respiratory: bilateral: CTA - Cardiovascular Heart rate: 78 Rhythm: regular Heart Sounds: Present: S1 & S2. Absent: rub, click - Extremities Extremities: no ischemia, pulses intact, pulses symmetrical, No edema Peripheral Pulses: within normal limits - Abdominal General gastrointestinal: Present: soft, non-tender, non-distended, normal bowel sounds Female genitourinary: Present: normal - Rectal Rectal Exam: deferred - Integumentary Integumentary: Present: clear, warm, dry - Musculoskeletal Musculoskeletal: gait normal, strength equal bilaterally - Psychiatric Psychiatric: appropriate mood/affect, intact judgment & insight - Neurologic Neurologic: CNII-XII intact, moves all extremities (power 5/5 all 4 extremities) - Allied Health Allied health notes reviewed: nursing, case management Plan Activity: no restrictions Diet: low fat, low cholesterol, low salt Follow up with: PRIMARY CARE, [Primary Care Provider] - 3-5 Days
--- NOTE | 2019-08-18 18:30 | Consultation ---
History of Present Illness Consult date: 08/18/19 Chief complaint: left sided weakness History of present illness: This is a 59 YO F who presented to the ED with left sided weakness and headache. Pt worked up and no stroke was found. Pt currently at baseline. Past History Past Medical History: hypertension Social history: no significant social history Family history: hypertension Medications and Allergies Allergies Allergy/AdvReac Type Severity Reaction Status Date / Time No Known Allergies Allergy Unverified 08/17/19 09:07 Home Medications Medication Instructions Recorded Confirmed Last Taken Type Aspirin 325 mg PO QDAY #30 tablet 08/18/19 Unknown Rx Clopidogrel [Plavix] 75 mg PO QDAY #30 tablet 08/18/19 Unknown Rx Losartan [Cozaar] 100 mg PO QDAY #30 tablet 08/18/19 Unknown Rx Pravastatin [Pravachol] 40 mg PO QHS #30 tablet 08/18/19 Unknown Rx amLODIPine [Norvasc] 10 mg PO QDAY #30 tablet 08/18/19 Unknown Rx Review of Systems Neurological: weakness, headaches Physical Examination - Vital Signs Vital Signs: Vital Signs Temp Pulse Resp BP Pulse Ox 98.0 F 105 H 16 235/143 96 08/17/19 09:07 08/17/19 09:07 08/17/19 09:07 08/17/19 09:07 08/17/19 09:07 - Constitutional General appearance: comfortable - EENT EENT: Present: PERRL, mucous membranes moist - Respiratory Respiratory: Present: lungs clear - Cardiovascular Cardiovascular: Present: regular rate Extremities: Present: no peripheral edema bilatateraly - Gastrointestinal Gastrointestinal: Present: normoactive bowel sounds - Integumentary Integumentary: Present: normal - Neurologic Cranial nerve examination: PERRL, EOMI, face symmetric, tongue midline, intact Detailed motor examination: grossly full strength in Detailed sensory examination: intact - Psychiatric Psychiatric: Present: mood/affect appropriate Results - Laboratory Findings CBC and BMP: 08/18/19 04:23 08/18/19 04:23 Abnormal Lab Findings: Abnormal Labs 08/17/19 08/17/19 08/17/19 09:10 09:35 09:35 Morgan % (Auto) 7.5 H Potassium Chloride BUN 20 H Creatinine Glucose 127 H POC Glucose 134 H Hemoglobin A1c Total Protein Triglycerides Plasma/Serum Alcohol 08/17/19 08/17/19 08/17/19 09:35 09:35 18:25 Morgan % (Auto) Potassium Chloride BUN Creatinine Glucose POC Glucose Hemoglobin A1c 7.0 H Total Protein 8.7 H Triglycerides Plasma/Serum Alcohol 0.11 H 08/18/19 08/18/19 04:23 04:23 Morgan % (Auto) 11.1 H Potassium 3.1 L D Chloride 97.3 L BUN Creatinine 0.6 L Glucose 139 H POC Glucose Hemoglobin A1c Total Protein Triglycerides 211 H Plasma/Serum Alcohol - Diagnostic Findings Additional findings: MRI Brain nothing acute, echo , carotids ok Assessment and Plan This is a 59 YO F with complicated migraine vs TIA REcommend: Agree with aspirin and statin. Follow up with PCP outpatient HTN control. PT has been discharged
== END 2019-08-18 18:26 | disposition home or self-care (01) ==
LOC: ED 08:59 → 4A 12:00 → INTOOBSV 12:00 → 4A 12:33
PROVIDERS: ADMIT Internal Medicine; ATTEND Internal Medicine
DX: I63.9 Cerebral infarction, unspecified (principal); G45.9 Transient cerebral ischemic attack, unspecified; I10 Essential (primary) hypertension; G44.209 Tension-type headache, unspecified, not intractable; R29.818 Other symptoms and signs involving the nervous system; F17.200 Nicotine dependence, unspecified, uncomplicated
CPT/HCPCS: 36415; 70450; 70551; 71045; 80048; 80053; 80061; 80076; 82140; 82962; 83036; 83735; 83880; 84484; 85025; 85610; 85670; 85730; 93005; 93010; 93306; 93880; 94760; 96374; 96375; 96376; 97161; 97165; 99284; A9270; G0378; J2270; J2405; 80320; G0480